=== PATIENT | female | born 1960 | race Caucasian/White ===

== ENCOUNTER 2016-03-14 09:32 | Day surgery (SDC) | payer OTHER ==
[~2016-03-14] VITALS: Ht 154.9 cm; Wt 107.9 kg
[~2016-03-14 09:32] MED LIST: COZAAR50 MG PO; EFFEXOR XR37.5 MG PO; NAPROSYN500 MG PO; NEURONTIN300 MG PO
== END 2016-03-14 11:42 | disposition home or self-care (01) ==
LOC: PAIN 09:32
PROC: 3E0S33Z Introduction of Anti-inflammatory into Epidural Space, Percutaneous Approach (ICD-10-PCS; principal; 2016-03-14)
DX: M54.16 Radiculopathy, lumbar region (principal); F41.1 Generalized anxiety disorder; E66.01 Morbid (severe) obesity due to excess calories; Z68.42 Body mass index [BMI] 45.0-49.9, adult; M06.9 Rheumatoid arthritis, unspecified; M25.559 Pain in unspecified hip; I10 Essential (primary) hypertension; K21.9 Gastro-esophageal reflux disease without esophagitis; Z87.891 Personal history of nicotine dependence; Z80.8 Family history of malignant neoplasm of other organs or systems; Z82.49 Family history of ischemic heart disease and other diseases of the circulatory system; Z88.8 Allergy status to other drugs, medicaments and biological substances; Z88.2 Allergy status to sulfonamides
CPT/HCPCS: J1030; J1100; J2250; J3010; S0020

== ENCOUNTER 2016-04-11 14:10 | Day surgery (SDC) | payer OTHER ==
[~2016-04-11] VITALS: Ht 154.9 cm; Wt 109.8 kg
[~2016-04-11 14:10] MED LIST changes: +FLEXERIL5 MG PO; +ULTRAM50 MG PO
== END 2016-04-11 17:45 | disposition home or self-care (01) ==
LOC: PAIN 14:10 → SDC 15:00 → PAIN 15:00
PROC: 3E0S33Z Introduction of Anti-inflammatory into Epidural Space, Percutaneous Approach (ICD-10-PCS; principal; 2016-04-11)
PROC: 3E0S3BZ Introduction of Anesthetic Agent into Epidural Space, Percutaneous Approach (ICD-10-PCS; principal; 2016-04-11)
DX: M54.17 Radiculopathy, lumbosacral region (principal); K21.9 Gastro-esophageal reflux disease without esophagitis; M06.9 Rheumatoid arthritis, unspecified
CPT/HCPCS: J1100; J2250; J3010

== ENCOUNTER 2016-08-08 14:36 | Day surgery (SDC) | payer OTHER ==
[~2016-08-08] VITALS: Ht 154.9 cm; Wt 105.2 kg
[~2016-08-08 14:36] MED LIST changes: +NORCO 5/3251 TABLET PO; +ZANAFLEX2 MG PO
== END 2016-08-08 17:26 | disposition home or self-care (01) ==
LOC: PAIN 14:36
DX: M47.26 Other spondylosis with radiculopathy, lumbar region (principal); M54.5 Low back pain; G89.29 Other chronic pain; K21.9 Gastro-esophageal reflux disease without esophagitis; F41.1 Generalized anxiety disorder; I10 Essential (primary) hypertension; Z68.42 Body mass index [BMI] 45.0-49.9, adult; E66.01 Morbid (severe) obesity due to excess calories; R73.09 Other abnormal glucose; M06.9 Rheumatoid arthritis, unspecified; E78.5 Hyperlipidemia, unspecified; Z88.2 Allergy status to sulfonamides; Z79.891 Long term (current) use of opiate analgesic; Z87.891 Personal history of nicotine dependence
CPT/HCPCS: J1100; J2250; J3010

== ENCOUNTER 2016-09-02 06:27 | Emergency (ER) | payer OTHER ==
[~2016-09-02] VITALS: Ht 154.9 cm; Wt 111.3 kg
[2016-09-02 09:10] LABS: EOSINOPHIL (%) 0.6 % (0-5); HEMATOCRIT 40.1 % (36.0-46.0); IMMATURE GRANULOCYTE (%) 0.2 % (0.0-0.7); INSTRUMENT ABS NEUTROPHIL CT 3.1 K/uL; LYMPHOCYTE COUNT 2.2 K/uL (1.0-2.8); MCH 29.3 PG (29.0-34.0); MCHC 32.4 G/DL (30.0-36.0); MCV 90.5 FL (83-99); MEAN PLAT.VOLUME 10.5 uM^3 (9.5-12.4); MONOCYTE (%) 12.6 % (3-12); MONOCYTE COUNT 0.8 K/uL (0-0.8); NEUTROPHIL (%) 50.4 % (45-76); NEUTROPHIL COUNT 3.1 K/uL (1.8-6.4); PLATELET COUNT 167 K/uL (156-360); RBC DIS.WIDTH-CV 13.3 % (11.8-14.6); RBC DIS.WIDTH-SD 44.4 % (39-53); RED BLOOD COUNT 4.43 M/uL (3.80-5.20); WHITE BLOOD COUNT 6.2 K/uL (4.1-10.2)
[2016-09-02 09:41] LABS: ANION GAP 10 MEQ/L (2-14); CHLORIDE 103 MEQ/L (99-109); GFR ESTIMATE (CALCULATED) > 59 mL/min/; GLUCOSE 120 mg/dL (70-99); POTASSIUM 3.2 MEQ/L (3.7-5.4); SAMPLE HEMOLYSIS CHECK 0; SAMPLE ICTERIC CHECK 0; SAMPLE LIPEMIA CHECK 0; SODIUM 137 MEQ/L (136-147); UREA NITROGEN (BUN) 10 mg/dL (9-23)
[2016-09-02] MEDS ORDERED: LEVAQUIN750 MG PO (10:26)
[2016-09-02 10:44] VITALS: BP 130/71
== END 2016-09-02 10:54 | disposition home or self-care (01) ==
LOC: EME 06:27
PROVIDERS: Emergency Medicine
DX: J11.00 Influenza due to unidentified influenza virus with unspecified type of pneumonia (principal); K21.9 Gastro-esophageal reflux disease without esophagitis; I10 Essential (primary) hypertension; Z90.710 Acquired absence of both cervix and uterus; Z87.891 Personal history of nicotine dependence
CPT/HCPCS: 71020; 80048; 85025; 94640; 99281; 99284; J7512

== ENCOUNTER → 2017-06-17 | Outpatient (CLI) | payer OTHER ==
[~2017-06-17] MED LIST changes: +LEVAQUIN750 MG PO
== END | disposition home or self-care (01) ==
LOC: CDC 09:07
DX: Z01.810 Encounter for preprocedural cardiovascular examination (principal)
CPT/HCPCS: 93000

== ENCOUNTER 2017-07-24 06:20 | Day surgery (SDC) | payer OTHER ==
[~2017-07-24] VITALS: Ht 154.9 cm; Wt 110.0 kg
[~2017-07-24 06:20] MED LIST changes: +RELAFEN500 M1 PO
[2017-07-24 06:47] VITALS: BP 127/61
[2017-07-24 10:35] VITALS: BP 136/79
[2017-07-24 11:35] VITALS: BP 140/62
== END 2017-07-24 11:55 | disposition home or self-care (01) ==
LOC: SDC 06:20
DX: T83.711A Erosion of implanted vaginal mesh to surrounding organ or tissue, initial encounter (principal); Y76.2 Prosthetic and other implants, materials and accessory obstetric and gynecological devices associated with adverse incidents; I10 Essential (primary) hypertension; Z87.891 Personal history of nicotine dependence; Z88.2 Allergy status to sulfonamides
CPT/HCPCS: J0690; J1100; J1170; J1885; J2250; J2405; J3010; J7643

== ENCOUNTER 2017-07-31 09:21 | Observation (INO) | payer OTHER ==
[~2017-07-31] VITALS: Ht 154.9 cm; Wt 114.0 kg
[~2017-07-31 09:21] MED LIST changes: -RELAFEN500 M1 PO; +RELAFEN750 MG PO
[2017-07-31 09:46] LABS: BASOPHIL (%) 0.4 % (0-1); EOSINOPHIL COUNT 0.2 K/uL (0-0.3); HEMATOCRIT 41.9 % (36.0-46.0); HEMOGLOBIN 13.9 G/DL (11.9-15.5); IMMATURE GRANULOCYTE (%) 0.3 % (0.0-0.7); LYMPHOCYTE (%) 34.3 % (15-42); LYMPHOCYTE COUNT 2.4 K/uL (1.0-2.8); MCH 30.6 PG (29.0-34.0); MCHC 33.2 G/DL (30.0-36.0); MCV 92.3 FL (83-99); MONOCYTE COUNT 0.7 K/uL (0-0.8); NEUTROPHIL COUNT 3.6 K/uL (1.8-6.4); PLATELET COUNT 218 K/uL (156-360); RBC DIS.WIDTH-CV 13.3 % (11.8-14.6); RBC DIS.WIDTH-SD 45.5 % (39-53); RED BLOOD COUNT 4.54 M/uL (3.80-5.20); WHITE BLOOD COUNT 6.9 K/uL (4.1-10.2)
[2017-07-31 09:51] LABS: INTER. NORMALIZED RATIO 0.9
[2017-07-31 09:54] LABS: PTT 29.7 SEC (25-37)
[2017-07-31 09:58] LABS: AMYLASE 43 IU/L (1-118); CHLORIDE 108 mEq/L (99-109); POTASSIUM 4.1 mEq/L (3.7-5.4); SODIUM 142 mEq/L (136-147)
[2017-07-31 10:00] LABS: GLUCOSE 98 mg/dL (70-99)
[2017-07-31 10:03] LABS: SERUM ETHYL ALCOHOL < 10 mg/dL
[2017-07-31 10:04] LABS: CREATININE 0.7 mg/dL (0.6-1.3); GFR ESTIMATE (CALCULATED) > 59 mL/min/
[2017-07-31 10:05] LABS: UREA NITROGEN (BUN) 21 mg/dL (9-23)
[2017-07-31 10:07] LABS: LIPASE 28 U/L (1.0-51.0)
[2017-07-31 10:09] LABS: TROP-I INTERPRETATION NEGATIVE; TROPONIN-I < 0.01 ng/mL (0.0-0.30)
[2017-07-31 10:14] LABS: QUANTITATIVE HCG 5.1 MIU/ML
[2017-07-31 10:29] LABS: APPEARANCE CLEAR ((CLEAR)); BILIRUBIN NEGATIVE; BLOOD NEGATIVE; COLOR YELLOW ((YELLOW)); GLUCOSE (STRIP) NEGATIVE; KETONES NEGATIVE; LEUKOCYTES NEGATIVE; NITRITE NEGATIVE; PROTEIN (STRIP) NEGATIVE; SPECIFIC GRAVITY 1.021 (1.000-1.030); UCUL ADDED? NO; UROBILINOGEN 0.2 MG/DL (0.2-1.0)
[2017-07-31 10:39] LABS: AMPHETAMINE NEGATIVE (500 ng/mL); BARBITURATES NEGATIVE (200 ng/mL); BENZODIAZEPINES NEGATIVE (150 ng/mL); BUPRENORPHINE NEGATIVE (10 ng/mL); COCAINE NEGATIVE (150 ng/mL); METHADONE NEGATIVE (200 ng/mL); METHAMPHETAMINE NEGATIVE (500 ng/mL); OPIATES (MORPHINE) NEGATIVE (100 ng/mL); OXYCODONE NEGATIVE (100 ng/mL); PHENCYCLIDINE NEGATIVE (25 ng/mL); PROPOXYPHENE NEGATIVE (300 ng/mL); THC CANNABINOIDS NEGATIVE (50 ng/mL); TRICYCLIC ANTIDEPRESSANTS NEGATIVE (300 ng/mL)
[2017-07-31 14:00] VITALS: BP 128/71
[2017-07-31 15:37] LABS: HDL CHOLESTEROL 58 MG/DL (Desirable>=50); LDL CHOLESTEROL 112 mg/dL (Desirable<100); NON-HDL CHOLESTEROL 148 mg/dL (Desirable<160); TOTAL CHOLESTEROL 206 mg/dL (Desirable<200); TRIGLYCERIDES 178 MG/DL (Normal: <150)
[2017-07-31 19:24] VITALS: BP 123/58
[2017-07-31 21:00] VITALS: BP 124/66
[2017-07-31 21:02] VITALS: BP 123/69
[2017-07-31 21:04] VITALS: BP 149/78
[2017-08-01 00:10] VITALS: BP 101/52
[2017-08-01 03:55] VITALS: BP 118/56
[2017-08-01 07:25] VITALS: BP 124/74
[2017-08-01] MEDS ORDERED: ANTIVERT12.5 MG PO (08:29)
[2017-08-01 11:28] LABS: HEMOGLOBIN A1c (GLYCOHEMOGLOB) 5.6 % (Below 5.7)
== END 2017-08-01 10:07 | disposition home or self-care (01) ==
LOC: EME 09:21 → EDOF 12:07 → 4SOUTH 12:07 → EDOF 12:07 → ENRESERV 12:09 → 4SOUTH 13:55 → ENPENDDIS 08-01 → 4SOUTH 08-01 10:07
PROVIDERS: Emergency Medicine; Hospitalist
DX: R42 Dizziness and giddiness (principal); R61 Generalized hyperhidrosis; R20.0 Anesthesia of skin; I65.23 Occlusion and stenosis of bilateral carotid arteries; I10 Essential (primary) hypertension; F41.9 Anxiety disorder, unspecified; M19.90 Unspecified osteoarthritis, unspecified site; E66.3 Overweight; Z87.891 Personal history of nicotine dependence; Z88.2 Allergy status to sulfonamides
CPT/HCPCS: 70450; 80048; 80061; 81003; 82150; 82948; 83036; 83690; 84484; 84702; 85025; 85610; 85730; 86850; 86900; 86901; 93005; 93880; 99281; 99285; G0378; G0480; J2405; J7030